=== PATIENT | female | born 1970 | race Caucasian/White ===

== ENCOUNTER 2018-08-20 14:05 | Emergency (ER) | payer SELFPAY ==
[~2018-08-20] VITALS: Ht 165.1 cm; Wt 56.7 kg
[2018-08-20] MEDS ORDERED: TAMO10TA4 PO (14:23)
[2018-08-20] MEDS ORDERED: TDAP DIPH,PERTUSS,TET VAC/PF 0.5 ML DISP.SYRIN IM ONE ×2 (14:43→14:45)
--- NOTE | 2018-08-20 14:48 | NUR ---
Patient discharged to home in stable conditon. Written and verbal after care instructions given to patient. Patient verbalizes understanding of instructions.
== END 2018-08-20 14:51 | disposition home or self-care (01) ==
LOC: ER 14:05
DX: S61.213A Laceration without foreign body of left middle finger without damage to nail, initial encounter (principal); W26.0XXA Contact with knife, initial encounter; Y93.89 Activity, other specified; Y92.89 Other specified places as the place of occurrence of the external cause; Y99.8 Other external cause status
CPT/HCPCS: 90715; A4663

== ENCOUNTER 2022-06-30 21:35 | Emergency (ER) | payer OTHER ==
[~2022-06-30] VITALS: Ht 165.1 cm; Wt 59.0 kg
[~2022-06-30 21:35] MED LIST: TAMO10TA6 PO
--- NOTE | 2022-06-30 21:50 | NUR ---
Dr. Kaiser at bedside for MSE.
--- NOTE | 2022-06-30 22:10 | NUR ---
Xray at bedside.
--- NOTE | 2022-06-30 22:55 | NUR ---
Patient discharged to home with family in stable condition. NAD noted. A/Ox4. Written and verbal after care instructions given. Patient verbalizes understanding of instructions. Stressed follow up or return to ER for worsening s/s. All belongings taken with patient.
[2022-06-30 22:58] VITALS: BP 115/74
== END 2022-06-30 22:55 | disposition home or self-care (01) ==
LOC: ER 21:35
DX: S93.401A Sprain of unspecified ligament of right ankle, initial encounter (principal); W18.40XA Slipping, tripping and stumbling without falling, unspecified, initial encounter; Y93.89 Activity, other specified; Y92.252 Music hall as the place of occurrence of the external cause; R55 Syncope and collapse; Z85.3 Personal history of malignant neoplasm of breast; Z90.13 Acquired absence of bilateral breasts and nipples; Z79.810 Long term (current) use of selective estrogen receptor modulators (SERMs)
CPT/HCPCS: 73610; 93005; A4663

== ENCOUNTER 2024-07-23 17:15 | Emergency (ER) | payer OTHER ==
[~2024-07-23] VITALS: Ht 165.1 cm; Wt 61.2 kg
[2024-07-23] MEDS ORDERED: NEOMY/BACITRA/POLYMYXIN B OINT UD PACKET TP ONE ×2 (19:44→19:45)
[2024-07-23 20:11] VITALS: BP 90/70; TEMP 98.2; O2SAT 99
== END 2024-07-23 20:15 | disposition home or self-care (01) ==
LOC: ER 17:16
DX: S61.211A Laceration without foreign body of left index finger without damage to nail, initial encounter (principal); Z90.13 Acquired absence of bilateral breasts and nipples; Z85.3 Personal history of malignant neoplasm of breast; Z88.7 Allergy status to serum and vaccine; W25.XXXA Contact with sharp glass, initial encounter; Y93.89 Activity, other specified; Y92.89 Other specified places as the place of occurrence of the external cause; Y99.8 Other external cause status
CPT/HCPCS: A4606; A4663